=== PATIENT | male | born 1950 | race Caucasian/White ===

== ENCOUNTER 2016-09-20 08:39 | Observation (INO) | payer MEDICARE, OTHER ==
[~2016-09-20] VITALS: Ht 172.7 cm; Wt 89.0 kg
[2016-09-20] VITALS (9 sets, daily range): BP systolic 106–139; BP diastolic 59–77; PULSE 51–70; RESP 16–20; TEMP 97.5–99.2; O2SAT 93–99
[~2016-09-20 08:39] MED LIST: ALAV10TA PO; ASPI81TA82 PO; ATOR10TA PO; B COTAB3 PO; BACL10TA PO; CALC250 PO; CLON.5 PO; DOCU1CAP39 PO; KETO2%T TOP; KETO2SHA5 TOP; LACT CHEW; MECL12.574 PO; NAME10TA PO; OMEG100037 PO; OXYB5TAB33 PO; PARO40TA PO; PERC5TAB12 PO; TAB-TAB PO; VENTAER INH; WELL150T PO; [UNRECOGNIZED DRUG - CODE] PO
[2016-09-20] MEDS ORDERED: TRAZ100T6 PO (08:55)
[2016-09-20] MEDS ORDERED: MEMA1TAB2 PO (08:55)
[2016-09-20] MEDS ORDERED: BACL10TA PO (08:55)
[2016-09-20] MEDS ORDERED: ACIDWAF PO (08:55)
[2016-09-20] MEDS ORDERED: ATOR40TA16 PO (08:55)
[2016-09-20] MEDS ORDERED: MECL1CHW PO (08:55)
[2016-09-20] MEDS ORDERED: CLON0.5T PO (08:55)
[2016-09-20] MEDS ORDERED: GALA12TA PO (08:55)
[2016-09-20] MEDS ORDERED: BUPR100T4 PO (08:55)
[2016-09-20] MEDS ORDERED: ARTISOL3 RIGHT EYE (08:55)
[2016-09-20] MEDS ORDERED: ONDANSETRON HCL 4 MG/2 ML VIAL IV PUSH ONE (09:00)
[2016-09-20] MEDS ORDERED: SODIUM CHLORIDE 0.9% FLUSH 10 ML FLUSH IVF PRN (09:00)
[2016-09-20] MEDS ORDERED: MORPHINE SULFATE 4 MG/ML INJ IV ONE (09:00)
--- NOTE | 2016-09-20 09:16 | PD ---
HPI Chief Complaint: Syncope/Near-Syncope Time Seen by Provider: 08:42 Travel History International Travel<30 days: No Contact w/Intl Traveler<30days: No Traveled to known affect area: No History of Present Illness HPI 65 y/o male presents after he had a syncopal event in the shower last night. He hit his left lower chest and has been having pain there since. He states he' s had multiple blackout episodes before but doesn't know why he gets them. He states that he was able to get into bed afterwards that given he cannot get out of bed and the pain was worse he elected to call an ambulance to bring him here. He does not recall anything about the fall other than waking up next to a broken toilet. He states he sometimes has issues with his memory as he has dementia but provides his medication list. This limits history. He denies other complaints. PFSH Past Medical History Arthritis: Yes Anxiety: Yes Depression: Yes (ptsd) Cancer: Yes (prostate) High Cholesterol: Yes Chemotherapy: Yes COPD: Yes Dementia: Yes GERD: Yes Kidney Stones: Yes Psychiatric: Yes (movement terrets) Shingles: Yes Sleep Apnea: Yes (no cpap) Influenza Vaccination: Yes Past Surgical History Appendectomy: Yes Tonsillectomy: Yes Other Surgery: Yes (r lung sx) Social History Alcohol Use: No Tobacco Use: No Substance Use: Yes (etoh hx) Allergies-Medications (Allergen,Severity, Reaction): Coded Allergies: Reglan (Verified Allergy, Intermediate, severe depression, 09/20/16) Reported Meds & Prescriptions Reported Meds & Active Scripts Active Reported Trazodone (Trazodone HCl) 100 Mg Tablet 100 Mg PO HS Memantine 10 Mg Tab 10 Mg PO BID Meclizine HCl 25 Mg Tab.chew 12.5 Mg PO TID PRN Acidophilus (Lactobacillus) 1 Mg Wafr 2 Tab PO DAILY Galantamine (Galantamine Hydrobromide) 12 Mg Tab 24 Mg PO DAILY Clonazepam 0.5 Mg Tab 0.5 Mg PO BID Bupropion HCl 100 Mg Tab 300 Mg PO DAILY Baclofen 10 Mg Tab 10 Mg PO TID Atorvastatin (Atorvastatin Calcium) 40 Mg Tab 40 Mg PO HS Artificial Tears (Dextran 70/Hypromellose) 1 Each Drope[place] 1 Drop RIGHT EYE QID Review of Systems Except as stated in HPI: all other systems reviewed are Neg Physical Exam Narrative General: 65 y/o patient in no apparent distress Skin: trauma noted to left lower chest wall with ecchymosis Eyes: Pupils equal NECK: no pain with palpation in midline and with range of motion Cardiovascular: Regular rate and rhythm Respiratory: Normal respiratory effort noted, clear to auscultation bilaterally Abdomen: soft, tender left upper quadrant, nondistended Back: No step-offs, midline spine nontender with palpation Extremities: No pain over main joints Neuro: awake, moves all extremities, clear speech Data Data Last Documented VS Vital Signs Date Time Temp Pulse Resp B/P Pulse Ox O2 Delivery O2 Flow Rate FiO2 09/20/16 11:00 52 16 115/68 98 Room Air 09/20/16 08:45 98.4 Orders Electrocardiogram (09/20/16 08:47) Complete Blood Count With Diff (09/20/16 08:47) Comprehensive Metabolic Panel (09/20/16 08:47) Magnesium (Mg) (09/20/16 08:47) Ckmb (Isoenzyme) Profile (09/20/16 08:47) Troponin I (09/20/16 08:47) Act Partial Throm Time (Ptt) (09/20/16 08:47) Prothrombin Time / Inr (Pt) (09/20/16 08:47) Urinalysis - C+S If Indicated (09/20/16 08:47) Chest, Single Ap (09/20/16 08:47) Ecg Monitoring (09/20/16 08:47) Iv Access Insert/Monitor (09/20/16 08:47) Oximetry (09/20/16 08:47) Sodium Chloride 0.9% Flush (Ns Flush) (09/20/16 09:00) Ct Brain W/O Iv Contrast(Rout) (09/20/16 08:47) Ct Abd/Pel W Iv Contrast(Rout) (09/20/16 08:47) Ct Thorax/ Chest W Iv Contrast (09/20/16 08:47) Morphine Inj (Morphine Inj) (09/20/16 09:00) Ondansetron Inj (Zofran Inj) (09/20/16 09:00) CKMB (09/20/16 08:54) CKMB% (09/20/16 08:54) Morphine Inj (Morphine Inj) (09/20/16 10:00) Iohexol 350 Inj (Omnipaque 350 Inj) (09/20/16 10:16) Admit Order (Ed Use Only) (09/20/16 12:23) Labs Laboratory Tests Test 09/20/16 09/20/16 08:54 11:54 White Blood Count 6.3 TH/MM3 Red Blood Count 4.34 MIL/MM3 Hemoglobin 12.7 GM/DL Hematocrit 37.8 % Mean Corpuscular Volume 87.0 FL Mean Corpuscular Hemoglobin 29.2 PG Mean Corpuscular Hemoglobin 33.5 % Concent Red Cell Distribution Width 13.5 % Platelet Count 222 TH/MM3 Mean Platelet Volume 8.9 FL Neutrophils (%) (Auto) 59.6 % Lymphocytes (%) (Auto) 26.1 % Monocytes (%) (Auto) 9.8 % Eosinophils (%) (Auto) 4.0 % Basophils (%) (Auto) 0.5 % Neutrophils # (Auto) 3.7 TH/MM3 Lymphocytes # (Auto) 1.6 TH/MM3 Monocytes # (Auto) 0.6 TH/MM3 Eosinophils # (Auto) 0.3 TH/MM3 Basophils # (Auto) 0.0 TH/MM3 CBC Comment DIFF FINAL Differential Comment Prothrombin Time 10.4 SEC Prothromb Time International 0.9 RATIO Ratio Activated Partial 26.6 SEC Thromboplast Time Sodium Level 141 MEQ/L Potassium Level 4.0 MEQ/L Chloride Level 107 MEQ/L Carbon Dioxide Level 28.7 MEQ/L Anion Gap 5 MEQ/L Blood Urea Nitrogen 18 MG/DL Creatinine 0.99 MG/DL Estimat Glomerular Filtration 76 ML/MIN Rate Random Glucose 102 MG/DL Calcium Level 9.0 MG/DL Magnesium Level 2.2 MG/DL Total Bilirubin 0.4 MG/DL Aspartate Amino Transf 26 U/L (AST/SGOT) Alanine Aminotransferase 50 U/L (ALT/SGPT) Alkaline Phosphatase 59 U/L Total Creatine Kinase 190 U/L Creatine Kinase MB 2.4 NG/ML Troponin I LESS THAN 0.02 NG/ML Total Protein 6.7 GM/DL Albumin 3.7 GM/DL Urine Color YELLOW Urine Turbidity CLEAR Urine pH 5.5 Urine Specific [place] 1.044 Urine Protein NEG mg/dL Urine Glucose (UA) NEG mg/dL Urine Ketones NEG mg/dL Urine Occult Blood NEG Urine Nitrite NEG Urine Bilirubin NEG Urine Urobilinogen LESS THAN 2.0 MG/DL Urine Leukocyte Esterase NEG Urine WBC 1 /hpf Urine Mucus FEW /lpf Microscopic Urinalysis Comment CULT NOT INDICATED MDM Medical Decision Making Medical Screen Exam Complete: Yes Emergency Medical Condition: Yes Medical Record Reviewed: Yes (pmh confirmed) Interpretation(s) EKG shows NSR, no ST elevation or depression, and no arrhythmias. No significant T-wave inversions. first degree av block CBC & BMP Diagram 09/20/16 08:54 Last [address] 09/20/16846 Signed Impressions: Service Date/Time: Tuesday, September 20, 2016 10:06 - CONCLUSION: No acute intracranial abnormality. Mild mucosal thickening within right maxillary sinus. Casper Murray MD Chest X-Ray 09/20/16846 Signed Impressions: Service Date/Time: Tuesday, September 20, 2016 08:57 - CONCLUSION: No acute disease. Nicola Quiñonez MD FACR Chest CT 09/20/16846 Signed Impressions: Service Date/Time: Tuesday, September 20, 2016 10:11 - CONCLUSION: Left lower rib fracture without pneumothorax or contusion. Nicola Quiñonez MD FACR Abdomen/Pelvis CT 09/20/16846 Signed Impressions: Service Date/Time: Tuesday, September 20, 2016 10:06 - CONCLUSION: Left lower rib fracture. There is no splenic laceration or contusion. There is no free fluid. Nicola Quiñonez MD FACR Differential Diagnosis fracture, pneumothorax, spleenic injury, vasovagal, anemia, syncope.... Narrative Course will check labs and trauma imaging and reeval ed workup with 9 and 10th ribs fractures, needing morphine for pain control, will place in observation for monitoring Diagnosis Primary Impression: Rib fracture Qualified Code: S22.42XA - Closed fracture of multiple ribs of left side, initial encounter Additional Impression: Syncope Qualified Code: R55 - Syncope, unspecified syncope type Dianna Betts MD Sep 20, 2016 09:16
[2016-09-20 09:22] LABS: AUTOMATED NEUTROPHIL # 3.7 TH/MM3 (1.8-7.7); BASOPHIL % 0.5 % (0.0-2.0); EOSINOPHIL # 0.3 TH/MM3 (0-0.4); HEMATOCRIT 37.8 % (39.0-51.0); HEMO FLAGS DIFF FINAL; LYMPH % 26.1 % (9.0-44.0); LYMPHOCYTE # 1.6 TH/MM3 (1.0-4.8); MEAN CORPUSCULAR HEMOGLOBIN 29.2 PG (27.0-34.0); MEAN CORPUSCULAR HGB CONC 33.5 % (32.0-36.0); MONO % 9.8 % (0.0-8.0); NEUT % 59.6 % (16.0-70.0); PLATELET COUNT 222 TH/MM3 (150-450); RED BLOOD COUNT 4.34 MIL/MM3 (4.50-5.90); RED CELL DISTRIBUTION WIDTH 13.5 % (11.6-17.2); WHITE BLOOD COUNT 6.3 TH/MM3 (4.0-11.0)
[2016-09-20 09:35] LABS: APTT (PATIENT) 26.6 SEC (24.3-30.1); INTERNATIONAL NORMALIZED RATIO 0.9 RATIO; PROTHROMBIN TIME - PATIENT 10.4 SEC (9.8-11.6)
[2016-09-20 09:36] LABS: ANION GAP 5 MEQ/L (5-15); AST (GOT) 26 U/L (15-37); BICARBONATE 28.7 MEQ/L (21.0-32.0); BLOOD UREA NITROGEN 18 MG/DL (7-18); CHLORIDE 107 MEQ/L (98-107); GLOMERULAR FILTRATION RATE 76 ML/MIN (>89); MAGNESIUM 2.2 MG/DL (1.5-2.5); SODIUM (NA) 141 MEQ/L (136-145)
[2016-09-20 09:37] LABS: ALT (GPT) 50 U/L (12-78)
[2016-09-20 09:40] LABS: ALKALINE PHOSPHATASE 59 U/L (45-117); CREATINE KINASE 190 U/L (39-308); TOTAL BILIRUBIN ADULT 0.4 MG/DL (0.2-1.0)
--- NOTE | 2016-09-20 09:49 | RADRPT ---
EXAM DATE/TIME: 09/20/2016 08:57 [facility] COMPARISON: No previous studies available for comparison. INDICATIONS : Syncope, fall, passed out in the shower today, pain left chest and back MEDICAL HISTORY : Renal calculi. SURGICAL HISTORY : Appendectomy. right lung biopsy ENCOUNTER: Initial ACUITY: 1 day PAIN SCORE: 8/10 LOCATION: Left chest FINDINGS: A single view of the chest demonstrates the lungs to be symmetrically aerated without evidence of mas s, infiltrate or effusion. The cardiomediastinal contours are unremarkable. Osseous structures are intact. CONCLUSION: No acute disease. Nicola Quiñonez MD FACR on September 20, 2016 at 9:46 Board Certified Radiologist. This report was verified electronically.
[2016-09-20 09:53] LABS: CKMB 2.4 NG/ML (0.5-3.6)
[2016-09-20] MEDS ORDERED: MORPHINE SULFATE 4 MG/ML INJ IV PUSH ONE (10:00)
[2016-09-20] MEDS ORDERED: IOHEXOL 350 MG/ML 10 ML VIAL (for RAD DIAG) IV ONE (10:16)
--- NOTE | 2016-09-20 10:20 | RADRPT ---
EXAM DATE/TIME: 09/20/2016 10:06 [facility] COMPARISON: No previous studies available for comparison. INDICATIONS : Syncopal episode with fall. Left chest/abdominal pain. RADIATION DOSE: 56.35 CTDIvol (mGy) MEDICAL HISTORY : Carcinoma, prostate. Dementia. Chronic obstructive pulmonary disease. SURGICAL HISTORY : Appendectomy. Right lung surgery ENCOUNTER: Initial ACUITY: 1 day PAIN SCALE: 3/10 LOCATION: Left chest TECHNIQUE: Multiple contiguous axial images were obtained of the head. Using automated exposure control and adj ustment of the mA and/or kV according to patient size, radiation dose was kept as low as reasonably a chievable to obtain optimal diagnostic quality images. DICOM format image data is available electro nically for review and comparison. FINDINGS: CEREBRUM: The ventricles are normal for age. No evidence of midline shift, mass lesion, hemorrhage or acute in farction. No extra-axial fluid collections are seen. POSTERIOR FOSSA: The cerebellum and brainstem are intact. The 4th ventricle is midline. The cerebellopontine angle i s unremarkable. EXTRACRANIAL: The visualized portion of the orbits is intact. Mild mucosal thickening is noted within the right max illary sinus. SKULL: The calvaria is intact. No evidence of skull fracture. CONCLUSION: No acute intracranial abnormality. Mild mucosal thickening within right maxillary sin us. Casper Murray MD on September 20, 2016 at 10:15 Board Certified Radiologist. This report was verified electronically.
--- NOTE | 2016-09-20 10:40 | RADRPT ---
EXAM DATE/TIME: 09/20/2016 10:11 [facility] COMPARISON: No previous studies available for comparison. INDICATIONS : Syncopal episode with fall on left side. Left chest/abdominal pain. IV CONTRAST: 71 cc Omnipaque 350 (iohexol) IV ; Cumulative dose for multiple exams. RADIATION DOSE: 6.36 CTDIvol (mGy) ; Combined studies - Thorax/Abdomen/Pelvis MEDICAL HISTORY : Carcinoma, prostate. Chronic obstructive pulmonary disease. Dementia. SURGICAL HISTORY : Appendectomy. Right lung surgery ENCOUNTER: Initial ACUITY: 1 day PAIN SCALE: 4/10 LOCATION: Left chest TECHNIQUE: Volumetric scanning of the chest was performed. Using automated exposure control and adjustment of the mA and/or kV according to patient size, radiation dose was kept as low as reasonab ly achievable to obtain optimal diagnostic quality images. DICOM format image data is available gloria ctronically for review and comparison. FINDINGS: The there is no pneumothorax. The lungs are clear. There is no axillary or mediastinal adenopathy. There is no significant soft tissue swelling over the left chest. Review of bone windows reveals fracture of the ninth and possibly 10th rib. The spleen is intact. CONCLUSION: Left lower rib fracture without pneumothorax or contusion. Nicola Quiñonez MD FACR on September 20, 2016 at 10:35 Board Certified Radiologist. This report was verified electronically.
--- NOTE | 2016-09-20 11:12 | RADRPT ---
EXAM DATE/TIME: 09/20/2016 10:06 [facility] COMPARISON: No previous studies available for comparison. INDICATIONS : Syncopal episode with fall on left side. Left chest/abdominal pain. IV CONTRAST: 71 cc Omnipaque 350 (iohexol) IV ; Cumulative dose for multiple exams. ORAL CONTRAST: No oral contrast ingested. RADIATION DOSE: 6.36 CTDIvol (mGy) ; Combined studies - Thorax/Abdomen/Pelvis MEDICAL HISTORY : Chronic obstructive pulmonary disease. Carcinoma, prostate. Dementia. SURGICAL HISTORY : Appendectomy. Right lung surgery ENCOUNTER: Initial ACUITY: 1 day PAIN SCALE: 4/10 LOCATION: Left chest TECHNIQUE: Volumetric scanning of the abdomen and pelvis was performed. Using automated exposure control and ad justment of the mA and/or kV according to patient size, radiation dose was kept as low as reasonably achievable to obtain optimal diagnostic quality images. DICOM format image data is available electro nically for review and comparison. FINDINGS: The lung base are clear. Left lower rib fracture, is again noted. There is mild fatty replacement t o the liver. The spleen is unremarkable There is no free peritoneal fluid The pancreas, adrenals and kidneys are unremarkable. The pelvic contents appear normal except for scattered diverticuli. Review of bone windows reveals the left lower rib fracture Degenerative changes are present in the lumbar spine. CONCLUSION: Left lower rib fracture. There is no splenic laceration or contusion. There is no free fluid. Nicola Quiñonez MD FACR on September 20, 2016 at 11:08 Board Certified Radiologist. This report was verified electronically.
[2016-09-20 12:22] LABS: BLOOD, URINE NEG (NEG); COMMENT (UR) CULT NOT INDICATED; CULTURE IF INDICATED CULT NOT INDICATED; GLUCOSE,URINE NEG (NEG); KETONE, URINE NEG (NEG); MUCUS URINE FEW /lpf (OCC); NITRITE,URINE NEG (NEG); PH, URINE 5.5 (5.0-8.5); URINE COLOR YELLOW (YELLW/STRAW)
[2016-09-20] MEDS ORDERED: SODIUM CHLORIDE 0.9% FLUSH 10 ML FLUSH IV FLUSH PRN (12:30)
[2016-09-20] MEDS ORDERED: LACTULOSE SYRUP 20 GM/30 ML CUP PO PRN (12:30)
[2016-09-20] MEDS ORDERED: SENNOSIDES 8.6 MG TAB PO PRN (12:30)
[2016-09-20] MEDS ORDERED: BISACODYL 10 MG SUPP RECTAL PRN (12:30)
[2016-09-20] MEDS ORDERED: NALOXONE HCL 0.4 MG/ML AMP IV PRN (12:30)
[2016-09-20] MEDS ORDERED: MAGNESIUM HYDROXIDE SUSP 30 ML CUP PO PRN (12:30)
[2016-09-20] MEDS ORDERED: ONDANSETRON HCL 4 MG/2 ML VIAL IVP PRN (12:30)
[2016-09-20] MEDS: SODIUM CHLOR 0.9% 1000 ML INJ 1,000 ML IV SCH ×2 (13:05→22:19)
--- NOTE | 2016-09-20 13:44 | RADRPT ---
EXAM DATE/TIME: 09/20/2016 12:49 [facility] COMPARISON: No previous studies available for comparison. INDICATIONS : Syncope. MEDICAL HISTORY : Carcinoma, prostate. Arthritis. Renal calculi. Dementia. Cataracts. COPD. Sleep apnea. GERD. PTSD. ETOH abuse. Anxiety. Shingles. SURGICAL HISTORY : Tonsillectomy. Appendectomy. Right leg pins and rods. Right lung surgery. Ch emotherapy. ENCOUNTER: Initial ACUITY: 2 days PAIN SCORE: 0/10 LOCATION: Bilateral neck PEAK SYSTOLIC VELOCITIES (cm/sec): ICA/CCA RATIO: Right: 1.0 Left: 1.0 ICA: Right: 85.3 Left: 89 CCA: Right: 87.9 Left: 90 ECA: Right: 83 Left: 74 VERTEBRAL: Right: 33 antegrade Left: 45 antegrade Elevated flow velocities and ICA/CCA ratios have been found to correlate with increased degrees of vessel stenosis, calculated as percentage of diameter relative to a normal segment of distal ICA/CCA FINDINGS: RIGHT CAROTID: There is no evidence for a hemodynamically significant carotid stenosis. Minimal int imal hyperplasia is present with scattered calcific plaque. LEFT CAROTID: There is no evidence for a hemodynamically significant carotid stenosis. Minimal inti mal hyperplasia is present with scattered calcific plaque. VERTEBRAL ARTERIES: Flow is antegrade in both vertebral arteries. MISCELLANEOUS: There are no ancillary masses or adenopathy. CONCLUSION: Negative examination for a hemodynamically significant carotid stenosis. Nicola Quiñonez MD FACR Board Certified Radiologist. This report was verified electronically.
--- NOTE | 2016-09-20 14:33 | EKG ---
Date Performed: 09/20/2016 Time Performed: 08:57:07 PTAGE: 65 years EKG: SINUS BRADYCARDIA WITH FIRST DEGREE AV BLOCK ABNORMAL ECG NO SIGNIFICANT CHANGE FROM PRIOR ELECTROCARDIOGRAM. PREVIOUS TRACING : 08/31/2014 14.12 DOCTOR: Bony Hook Interpretating Date/Time 09/20/2016 14:32:12
[2016-09-20] MEDS: ACETAMINOPHEN/HYDROcodone 325 MG/5 MG TAB PO PRN ×3 (14:34→22:55)
--- NOTE | 2016-09-20 14:55 | HHI.HP ---
[facility] Service [facility] Primary Care Physician [facility] Admission Diagnosis rib fracture, syncope Diagnoses: Travel History International Travel<30 Days: No Contact w/Intl Traveler <30 Da: No Traveled to Known Affected Are: No History of Present Illness Mr. Leonard is a 65-year-old male. He is here secondary to syncopal episode with rib fractures. He was showering when the syncopal episode occurred. He fell backwards and struck the toilet with his back and has a fracture of ribs 9 and 10 on the left side without displacement. At baseline he does have orthostatic hypotension and uses meclizine as treatment for dizziness. Orthostatic hypotension will be his primary risk factor regarding his syncopal episode today. Baseline medical conditions are COPD, Tourette's, depression, anxiety, PTSD, dementia, hyperlipidemia. He has a history of kidney stones and prostate cancer in the past. He also has problems with recurrent ileus related to radiation he received for his prostate cancer. Presently pain controls the problem and he has not ambulated yet. No recent syncopal workup. His last syncopal episode with injury (leg fracture) was in 2004. She occasionally has syncopal episodes at home and when he is doing yard work. Review of Systems Constitutional: DENIES: Fatigue, Fever, Chills Eyes: DENIES: Blurred vision, Diplopia Ears, nose, mouth, throat: DENIES: Hearing loss, Vertigo Respiratory: DENIES: Apneas, Cough, Wheezing, Shortness of breath Cardiovascular: COMPLAINS OF: Syncope, DENIES: Chest pain, Palpitations Gastrointestinal: DENIES: Abdominal pain, Black stools, Bloody stools Genitourinary: DENIES: Urinary frequency, Hematuria, Nocturia Musculoskeletal: DENIES: Joint pain, Muscle aches, Stiffness Integumentary: DENIES: Abnormal pigmentation Hematologic/lymphatic: DENIES: Bruising Immunologic/allergic: DENIES: Eczema Neurologic: DENIES: Abnormal gait Psychiatric: DENIES: Mood changes, Suicidal Ideation Past Family Social History Past Medical History COPD Tourette's Depression Anxiety PTSD History of prostate cancer Recurrent ileus Hyperlipidemia Dementia (atypical) Recurrent nephrolithiasis Past Surgical History Tonsillectomy Lung biopsy Appendectomy Right leg fracture repair Right knee arthroscopy Reported Medications Reported Meds & Active Scripts Active Reported Trazodone (Trazodone HCl) 100 Mg Tablet 100 Mg PO HS Memantine 10 Mg Tab 10 Mg PO BID Meclizine HCl 25 Mg Tab.chew 12.5 Mg PO TID PRN Acidophilus (Lactobacillus) 1 Mg Wafr 2 Tab PO DAILY Galantamine (Galantamine Hydrobromide) 12 Mg Tab 24 Mg PO DAILY Clonazepam 0.5 Mg Tab 0.5 Mg PO BID Bupropion HCl 100 Mg Tab 300 Mg PO DAILY Baclofen 10 Mg Tab 10 Mg PO TID Atorvastatin (Atorvastatin Calcium) 40 Mg Tab 40 Mg PO HS Artificial Tears (Dextran 70/Hypromellose) 1 Each Droperette 1 Drop RIGHT EYE QID Allergies: Coded Allergies: Reglan (Verified Allergy, Intermediate, severe depression, 09/20/16) Active Ordered Medications Administered Medications Medications (Trade) Dose Ordered Sig/Shikha Route PRN Reason Start Time Stop Time Status Last Admin Dose Admin Sodium Chloride (NS 1000 ml Inj) 1,000 ml @ 100 mls/hr Q10H IV 09/20/16 12:23 09/20/16 13:05 Acetaminophen/ Hydrocodone Bitart ([place] 5-325 Mg) 1 tab Q4H PRN PO PAIN 1-10 09/20/16 12:30 09/20/16 14:34 Family History Diabetes mellitus type 2, hypertension, hyperlipidemia, and thyroid disease in mother Alzheimer's in father Social History No smoking history No drug abuse History of heavy drinking in the past, quit in 1989 Physical Exam Vital Signs Vital Signs Date Time Temp Pulse Resp B/P Pulse Ox O2 Delivery O2 Flow Rate FiO2 09/20/16 11:00 52 16 115/68 98 Room Air 09/20/16 08:50 16 99 Room Air 09/20/16 08:45 98.4 62 16 139/77 99 Physical Exam GENERAL: NAD, A&Ox2 HEAD: Normocephalic. NECK: Supple, trachea midline. No lymphadenopathy. EYES: No scleral icterus. No injection or drainage. CARDIOVASCULAR: Regular rate and rhythm without murmurs, gallops, or rubs. RESPIRATORY: Breath sounds equal bilaterally. No accessory muscle use. GASTROINTESTINAL: Abdomen soft, non-tender, nondistended. MUSCULOSKELETAL: No cyanosis, or edema. SKIN: Warm and dry. NEURO: No focal neurological deficitis. Laboratory Laboratory Tests Test 09/20/16 09/20/16 08:54 11:54 White Blood Count 6.3 Red Blood Count 4.34 Hemoglobin 12.7 Hematocrit 37.8 Mean Corpuscular Volume 87.0 Mean Corpuscular Hemoglobin 29.2 Mean Corpuscular Hemoglobin 33.5 Concent Red Cell Distribution Width 13.5 Platelet Count 222 Mean Platelet Volume 8.9 Neutrophils (%) (Auto) 59.6 Lymphocytes (%) (Auto) 26.1 Monocytes (%) (Auto) 9.8 Eosinophils (%) (Auto) 4.0 Basophils (%) (Auto) 0.5 Neutrophils # (Auto) 3.7 Lymphocytes # (Auto) 1.6 Monocytes # (Auto) 0.6 Eosinophils # (Auto) 0.3 Basophils # (Auto) 0.0 CBC Comment DIFF FINAL Differential Comment Prothrombin Time 10.4 Prothromb Time International 0.9 Ratio Activated Partial 26.6 Thromboplast Time Sodium Level 141 Potassium Level 4.0 Chloride Level 107 Carbon Dioxide Level 28.7 Anion Gap 5 Blood Urea Nitrogen 18 Creatinine 0.99 Estimat Glomerular Filtration 76 Rate Random Glucose 102 Calcium Level 9.0 Magnesium Level 2.2 Total Bilirubin 0.4 Aspartate Amino Transf 26 (AST/SGOT) Alanine Aminotransferase 50 (ALT/SGPT) Alkaline Phosphatase 59 Total Creatine Kinase 190 Creatine Kinase MB 2.4 Troponin I LESS THAN 0.02 Total Protein 6.7 Albumin 3.7 Urine Color YELLOW Urine Turbidity CLEAR Urine pH 5.5 Urine Specific [place] 1.044 Urine Protein NEG Urine Glucose (UA) NEG Urine Ketones NEG Urine Occult Blood NEG Urine Nitrite NEG Urine Bilirubin NEG Urine Urobilinogen LESS THAN 2.0 Urine Leukocyte Esterase NEG Urine WBC 1 Urine Mucus FEW Microscopic Urinalysis Comment CULT NOT INDICATED Result Diagram: 09/20/16 0854 09/20/16 0854 Assessment and Plan Problem List: (1) Syncope ICD Code: R55 Status: Acute (2) Rib fracture ICD Code: S22.39XA Status: Acute Assessment and Plan Assessment and plan 65-year-old male admitted after having a syncopal episode at home and sustaining to rib fractures. Syncope Carotid ultrasound Echocardiogram Follow on telemetry Orthostatic blood pressure checks Continue meclizine as needed Physical therapy evaluation Rib fractures (ribs 9 and 10 on left) [place] for pain Physical therapy evaluation to determine ambulation stability COPD No exacerbation No change in baseline treatments Follow clinically Tourette's syndrome Motor variety Supportive care Depression Anxiety PTSD Continue baseline treatments Follow clinically No exacerbation History of prostate cancer Follows in outpatient Recurrent ileus No symptoms tonight Follow clinically Hyperlipidemia Follow as an outpatient Dementia (atypical) No change in baseline treatments Monitor as an outpatient nephrolithiasis history Asymptomatic DVT prophylaxis SCDs Problem Qualifiers (1) Syncope: Qualified Code: R55 - Syncope, unspecified syncope type (2) Rib fracture: Qualified Code: S22.42XA - Closed fracture of multiple ribs of left side, initial encounter Kadeem Marroquin MD Sep 20, 2016 14:54
[2016-09-20] MEDS ORDERED: MECLIZINE HCL 25 MG TAB PO PRN (17:15)
[2016-09-20] MEDS: ARTIFICIAL TEARS OPTH SOLN 15 ML BTL RIGHT EYE SCH ×2 (18:35→22:18)
[2016-09-20] MEDS: BACLOFEN 10 MG TAB PO SCH (18:35)
[2016-09-20] MEDS ORDERED: traZODone HCL 100 MG TAB PO SCH (21:00)
[2016-09-20] MEDS ORDERED: ATORVASTATIN 40 MG TAB PO SCH (21:00)
[2016-09-20] MEDS: SODIUM CHLORIDE 0.9% FLUSH 10 ML FLUSH IV FLUSH SCH (22:20)
[2016-09-20] MEDS: clonazePAM 0.5 MG TAB PO SCH (22:22)
[2016-09-20] MEDS: MEMANTINE HCL 10 MG TAB PO SCH (22:23)
[2016-09-20] MEDS: DOCUSATE SODIUM 50 MG/SENNA 8.6 MG TAB PO SCH (22:23)
[2016-09-20] MEDS ORDERED: CLAR10CA3 PO (23:49)
[2016-09-21] VITALS (9 sets, daily range): BP systolic 105–122; BP diastolic 57–71; PULSE 47–60; RESP 16–18; TEMP 97.9–98.5; O2SAT 95–96
[2016-09-21 05:41] LABS: BICARBONATE 28.1 MEQ/L (21.0-32.0)
[2016-09-21 06:02] LABS: AUTOMATED NEUTROPHIL # 2.3 TH/MM3 (1.8-7.7); BASOPHIL % 0.7 % (0.0-2.0); EOSINOPHIL # 0.2 TH/MM3 (0-0.4); EOSINOPHIL % 4.6 % (0.0-4.0); HEMO FLAGS DIFF FINAL; LYMPH % 37.6 % (9.0-44.0); LYMPHOCYTE # 1.9 TH/MM3 (1.0-4.8); MEAN CELL VOLUME 88.8 FL (80.0-100.0); MEAN CORPUSCULAR HEMOGLOBIN 28.6 PG (27.0-34.0); MEAN CORPUSCULAR HGB CONC 32.2 % (32.0-36.0); MONO % 9.5 % (0.0-8.0); NEUT % 47.6 % (16.0-70.0); PLATELET COUNT 197 TH/MM3 (150-450); RED BLOOD COUNT 4.17 MIL/MM3 (4.50-5.90); RED CELL DISTRIBUTION WIDTH 13.8 % (11.6-17.2); WHITE BLOOD COUNT 4.9 TH/MM3 (4.0-11.0)
[2016-09-21] MEDS: SODIUM CHLOR 0.9% 1000 ML INJ 1,000 ML IV SCH (08:23)
[2016-09-21] MEDS ORDERED: NAPROXEN 250 MG TAB PO SCH (09:00)
[2016-09-21] MEDS ORDERED: LACTOBACILLUS PO SCH (09:00)
[2016-09-21] MEDS ORDERED: buPROPion HCL 100 MG TAB PO SCH (09:00)
[2016-09-21] MEDS ORDERED: GALANTAMINE HYDROBROMIDE 4 MG TAB PO SCH (09:00)
--- NOTE | 2016-09-21 09:35 | HHI.PR ---
Subjective Remarks Follow-up for syncope and rib fractures. The patient continues to complain of left flank pain where his broken ribs are. Otherwise he denies any chest pain or shortness of breath. He states the pain medicine helps, but does not relieve the pain and still has problems moving. He states he used use a walker and wheelchair, but has weaned himself off of that. Objective Vitals Vital Signs Date Time Temp Pulse Resp B/P Pulse Ox O2 Delivery O2 Flow Rate FiO2 09/21/16 08:17 97.9 50 18 117/63 96 09/21/16 04:46 50 09/21/16 04:39 98.5 50 18 110/65 95 09/21/16 00:31 47 09/20/16 22:42 99.2 70 20 106/59 93 09/20/16 19:56 54 09/20/16 19:40 97.5 56 20 109/59 94 09/20/16 16:52 97.9 60 17 114/75 95 09/20/16 16:50 51 09/20/16 14:46 97.8 65 16 110/61 96 09/20/16 11:00 52 16 115/68 98 Room Air I/O 09/20/16 09/20/16 09/20/16 09/21/16 09/21/16 09/21/16 07:00 15:00 23:00 07:00 15:00 23:00 Output Total 400 ml Balance -400 ml Output Urine Total 400 ml Result Diagram: 09/21/16 0347 09/21/16 0347 Imaging Last Impressions Head CT 09/20/16846 Signed Impressions: Service Date/Time: Tuesday, September 20, 2016 10:06 - CONCLUSION: No acute intracranial abnormality. Mild mucosal thickening within right maxillary sinus. Casper Murray MD Chest X-Ray 09/20/16846 Signed Impressions: Service Date/Time: Tuesday, September 20, 2016 08:57 - CONCLUSION: No acute disease. Nicola Quiñonez MD FACR Chest CT 09/20/16846 Signed Impressions: Service Date/Time: Tuesday, September 20, 2016 10:11 - CONCLUSION: Left lower rib fracture without pneumothorax or contusion. Nicola Quiñonez MD FACR Abdomen/Pelvis CT 09/20/16846 Signed Impressions: Service Date/Time: Tuesday, September 20, 2016 10:06 - CONCLUSION: Left lower rib fracture. There is no splenic laceration or contusion. There is no free fluid. Nicola Quiñonez MD FACR Carotid Artery Ultrasound 09/20/16 0000 Signed Impressions: Service Date/Time: Tuesday, September 20, 2016 12:49 - CONCLUSION: Negative examination for a hemodynamically significant carotid stenosis. Nicola Quiñonez MD Objective Remarks GENERAL: Well-developed well-nourished. In no acute distress. SKIN: Warm and dry. No lesions noted. HEENT: Normocephalic. Pupils equal and round. Mucous membranes pink and moist. CARDIOVASCULAR: Regular rate and rhythm. No murmur appreciated. RESPIRATORY: No accessory muscle use. Clear to auscultation. Breath sounds equal bilaterally. GASTROINTESTINAL: Abdomen soft, non-tender, nondistended. Bowel sounds x4. MUSCULOSKELETAL: No obvious deformities. No clubbing or cyanosis. No edema. TTP of the lateral left lower ribs. NEUROLOGICAL: Awake and alert. No focal neurological deficits. Moves upper and lower extremities spontaneously. Normal speech. Strength 5/5. PSYCHIATRIC: Appropriate mood and affect; insight and judgment normal. A/P Problem List: (1) Syncope ICD Code: R55 Status: Acute (2) Rib fracture ICD Code: S22.39XA Status: Acute Assessment and Plan 65-year-old male admitted after having a syncopal episode at home and sustaining to rib fractures. Syncope Reviewed: Carotid ultrasound with no significant stenosis. Telemetry shows heart rate around 60 and sinus while awake, heart rate did drop down to 38 while asleep. Echocardiogram Follow on telemetry Orthostatic blood pressure checks Continue meclizine as needed Physical therapy evaluation Rib fractures (ribs 9 and 10 on left), seen on review of CT imaging Scheduled naproxen and Percocet as needed for pain Physical therapy evaluation to determine ambulation stability Incentive spirometry COPD No exacerbation No change in baseline treatments Follow clinically Tourette's syndrome Motor variety Supportive care Depression Anxiety PTSD Continue baseline treatments Follow clinically No exacerbation History of prostate cancer Follows in outpatient Recurrent ileus No current symptoms and no signs of ileus on abdominal imaging Follow clinically Hyperlipidemia Follow as an outpatient Dementia (atypical) No change in baseline treatments Monitor as an outpatient nephrolithiasis history Asymptomatic DVT prophylaxis SCDs Discharge Planning Follow-up PT recommendations, orthostatic blood pressures, and echocardiogram results. 1545 echocardiogram unremarkable. PT recommends no restrictions. Non- orthostatic. D/W Dr. Marroquin, patient, and at bedside. [place] home today. Problem Qualifiers (1) Syncope: Qualified Code: R55 - Syncope, unspecified syncope type (2) Rib fracture: Qualified Code: S22.42XA - Closed fracture of multiple ribs of left side, initial encounter Terence Diana Sep 21, 2016 09:35
[2016-09-21] MEDS: ARTIFICIAL TEARS OPTH SOLN 15 ML BTL RIGHT EYE SCH ×2 (09:42→12:09)
[2016-09-21] MEDS: SODIUM CHLORIDE 0.9% FLUSH 10 ML FLUSH IV FLUSH SCH (09:42)
[2016-09-21] MEDS: BACLOFEN 10 MG TAB PO SCH ×2 (09:43→12:10)
[2016-09-21] MEDS: oxyCODONE/ACETAMINOPHEN 5 MG/325 MG TAB PO PRN ×2 (09:43→14:22)
[2016-09-21] MEDS: DOCUSATE SODIUM 50 MG/SENNA 8.6 MG TAB PO SCH (09:43)
[2016-09-21] MEDS: clonazePAM 0.5 MG TAB PO SCH (09:43)
[2016-09-21] MEDS: MEMANTINE HCL 10 MG TAB PO SCH (09:44)
--- NOTE | 2016-09-21 15:38 | ECHRPT ---
Indication: chf CONCLUSIONS Normal left ventricular size. The left ventricular systolic function is normal with an estimated ejection fraction in the range of 55-60%. No regional wall motion abnormalities are present. Trace mitral valve regurgitation. The aortic valve is not well visualized. No aortic valve regurgitation. There is mild tricuspid valve regurgitation. The estimated pulmonary arterial pressure is 34__ mmHg. The pulmonary valve is not well visualized. The inferior vena cava was not well visualized. BP: 110 / 61 HR: Rhythm: Technical Quality:Fair FINDINGS LEFT VENTRICLE Normal left ventricular size. The left ventricular systolic function is normal with an estimated ejection fraction in the range of 55-60%. No regional wall motion abnormalities are present. RIGHT VENTRICLE Normal right ventricular size and systolic function. LEFT ATRIUM The left atrial size is normal. RIGHT ATRIUM The right atrial size is normal. ATRIAL SEPTUM Normal atrial septal thickness without atrial level shunting by limited color doppler interrogation. AORTA The aortic root and proximal ascending aorta are normal in size on limited imaging. MITRAL VALVE Structurally normal mitral valve. Trace mitral valve regurgitation. AORTIC VALVE Trileaflet aortic valve. The aortic valve is not well visualized. No aortic valve regurgitation. TRICUSPID VALVE Structurally normal tricuspid valve. There is mild tricuspid valve regurgitation. The estimated pulmonary arterial pressure is 34__ mmHg. PULMONARY VALVE No pulmonary valve regurgitation or stenosis. The pulmonary valve is not well visualized. VESSELS The inferior vena cava was not well visualized. PERICARDIUM No pericardial effusion. Bony Hook MD (Electronically Signed) Final Date:21 September 2016 15:37
[2016-09-21] MEDS ORDERED: OXYC1TAB63 PO (15:46)
[2016-09-21] MEDS ORDERED: LORATADINE 10 MG TAB PO SCH (21:00)
== END 2016-09-21 18:28 | disposition home or self-care (01) ==
LOC: NEPE 08:39 → NEDA 12:24 → NEPGCP 14:19
PROVIDERS: ADMIT Hospitalist; ATTEND Hospitalist
DX: S22.42XA Multiple fractures of ribs, left side, initial encounter for closed fracture (principal); R55 Syncope and collapse; J44.9 Chronic obstructive pulmonary disease, unspecified; F32.9 Major depressive disorder, single episode, unspecified; E78.00 Pure hypercholesterolemia, unspecified; F03.90 Unspecified dementia, unspecified severity, without behavioral disturbance, psychotic disturbance, mood disturbance, and anxiety; K21.9 Gastro-esophageal reflux disease without esophagitis; G47.30 Sleep apnea, unspecified; K56.7 Ileus, unspecified; F95.2 Tourette's disorder; F41.9 Anxiety disorder, unspecified; M19.90 Unspecified osteoarthritis, unspecified site; Z85.46 Personal history of malignant neoplasm of prostate; Z79.899 Other long term (current) drug therapy; W18.2XXA Fall in (into) shower or empty bathtub, initial encounter
CPT/HCPCS: 70450; 71010; 71260; 74177; 80048; 80053; 81001; 82550; 82552; 83735; 84484; 85025; 85610; 85730; 93005; 93308; 93880; 94150; 96374; 96375; 96376; 97162; 99285; G0378; G8987; G8988; J2270; J2405; J7030; Q9967

== ENCOUNTER 2016-12-10 10:48 | Inpatient (IN) | payer MEDICARE, OTHER ==
[~2016-12-10] VITALS: Ht 175.3 cm; Wt 90.0 kg
[2016-12-10] VITALS (8 sets, daily range): BP systolic 101–128; BP diastolic 56–79; PULSE 53–75; RESP 12–20; TEMP 97.8–98.7; O2SAT 93–99
[~2016-12-10 10:48] MED LIST changes: +ACIDWAF PO; -ALAV10TA PO; +ARTISOL3 RIGHT EYE; -ASPI81TA82 PO; -ATOR10TA PO; +ATOR40TA16 PO; -B COTAB3 PO; +BUPR100T4 PO; -CALC250 PO; +CLAR10CA3 PO; -CLON.5 PO; +CLON0.5T PO; -DOCU1CAP39 PO; +GALA12TA PO; -KETO2%T TOP; -KETO2SHA5 TOP; -LACT CHEW; -MECL12.574 PO; +MECL1CHW PO; +MEMA1TAB2 PO; -NAME10TA PO; -OMEG100037 PO; -OXYB5TAB33 PO; +OXYC1TAB63 PO; -PARO40TA PO; -PERC5TAB12 PO; -TAB-TAB PO; +TRAZ100T6 PO; -VENTAER INH; -WELL150T PO; -[UNRECOGNIZED DRUG - CODE] PO
[2016-12-10] MEDS ORDERED: IOHEXOL 350 MG/ML 10 ML VIAL (for RAD DIAG) IVCONTRAST ONE (10:49)
[2016-12-10] MEDS ORDERED: SODIUM CHLOR 0.9% 1000 ML INJ 1,000 ML IV SCH (11:13)
[2016-12-10] MEDS ORDERED: ONDANSETRON HCL 4 MG/2 ML VIAL IVP ONE (11:15)
[2016-12-10] MEDS ORDERED: MORPHINE SULFATE 4 MG/ML INJ IM ONE (11:15)
[2016-12-10 11:41] LABS: AUTOMATED NEUTROPHIL # 6.8 TH/MM3 (1.8-7.7); BASOPHIL % 0.3 % (0.0-2.0); EOSINOPHIL % 0.4 % (0.0-4.0); HEMATOCRIT 41.8 % (39.0-51.0); HEMO FLAGS DIFF FINAL; LYMPH % 10.8 % (9.0-44.0); LYMPHOCYTE # 0.9 TH/MM3 (1.0-4.8); MEAN CELL VOLUME 88.2 FL (80.0-100.0); MEAN CORPUSCULAR HEMOGLOBIN 29.3 PG (27.0-34.0); MEAN CORPUSCULAR HGB CONC 33.2 % (32.0-36.0); MONO % 4.6 % (0.0-8.0); NEUT % 83.9 % (16.0-70.0); PLATELET COUNT 305 TH/MM3 (150-450); RED BLOOD COUNT 4.75 MIL/MM3 (4.50-5.90); RED CELL DISTRIBUTION WIDTH 13.8 % (11.6-17.2); WHITE BLOOD COUNT 8.1 TH/MM3 (4.0-11.0)
--- NOTE | 2016-12-10 11:46 | PD ---
HPI Chief Complaint: GI Complaint Time Seen by Provider: 11:13 Travel History International Travel<30 days: No Contact w/Intl Traveler<30days: No Traveled to known affect area: No History of Present Illness HPI 66-year-old male arrives in the emergency department from home for evaluation of abdominal pain and vomiting that first started last night. Patient has a history of prostate cancer with radiation therapy in 2002. The radiation therapy left part of his colon damaged and he intermittently gets paralytic ileus as a result. The patient's is at bedside expresses concern because he has been hospitalized many times in the past for his paralytic ileus. Patient's primary care and GI physician is through the ID. Patient denies any chest pain, shortness of breath, fevers, chills, malaise, weakness or urinary symptoms. Patient states the last time he had a bowel movement was 2 days ago. Patient is still nauseated at this time but has not vomited since arriving to the hospital. . PFSH Past Medical History Arthritis: Yes Asthma: No Blood Disorders: No Anxiety: Yes Depression: Yes (ptsd) Heart Rhythm Problems: No Cancer: Yes (prostate) Cardiovascular Problems: No High Cholesterol: Yes Chemotherapy: No Congestive Heart Failure: No COPD: Yes Dementia: Yes Diabetes: No Endocrine: No GERD: Yes Genitourinary: No Immune Disorder: No Implanted Vascular Access Dvce: Yes Kidney Stones: Yes Medical other: Yes (PARALYTIC ILEUS) Musculoskeletal: Yes (plantar fasciatis ) Neurologic: No Psychiatric: Yes (movement terrets) Reproductive: No Respiratory: Yes Radiation Therapy: Yes Shingles: Yes Sleep Apnea: Yes (no cpap) Tetanus Vaccination: Unknown Influenza Vaccination: Yes Past Surgical History Appendectomy: Yes Body Medical Devices: cony in the R leg Tonsillectomy: Yes Other Surgery: Yes (r lung sx) Social History Alcohol Use: No Tobacco Use: No Substance Use: Yes (marijauna ) Allergies-Medications (Allergen,Severity, Reaction): Coded Allergies: metoclopramide (Unverified Allergy, Intermediate, severe depression, ) Reported Meds & Prescriptions Reported Meds & Active Scripts Active Reported Claritin (Loratadine) 10 Mg Cap 10 Mg PO HS Trazodone (Trazodone HCl) 100 Mg Tablet 100 Mg PO HS Memantine 10 Mg Tab 10 Mg PO BID Meclizine HCl 25 Mg Tab.chew 12.5 Mg PO TID PRN Acidophilus (Lactobacillus) 1 Mg Wafr 2 Tab PO DAILY Galantamine (Galantamine Hydrobromide) 12 Mg Tab 24 Mg PO DAILY Clonazepam 0.5 Mg Tab 0.5 Mg PO BID Bupropion HCl 100 Mg Tab 300 Mg PO DAILY Baclofen 10 Mg Tab 10 Mg PO TID Atorvastatin (Atorvastatin Calcium) 40 Mg Tab 40 Mg PO HS Artificial Tears (Dextran 70/Hypromellose) 1 Each Droperette 1 Drop RIGHT EYE QID Review of Systems Except as stated in HPI: all other systems reviewed are Neg Physical Exam Narrative GENERAL: Well-nourished well-developed 66-year-old male patient that appears to be in pain and nauseated. SKIN: Focused skin assessment warm/dry. HEAD: Atraumatic. Normocephalic. EYES: Pupils equal and round. No scleral icterus. No injection or drainage. ENT: No nasal bleeding or discharge. Mucous membranes pink and moist. NECK: Trachea midline. No JVD. CARDIOVASCULAR: Regular rate and rhythm. No murmur appreciated. RESPIRATORY: No accessory muscle use. Clear to auscultation. Breath sounds equal bilaterally. GASTROINTESTINAL: Abdomen soft, tender, nondistended. Large soft movable mass noted on the right lateral aspect of the abdomen. Hepatic and splenic margins not palpable. MUSCULOSKELETAL: No obvious deformities. No clubbing. No cyanosis. No edema. NEUROLOGICAL: Awake and alert. No obvious cranial nerve deficits. Motor grossly within normal limits. Normal speech. PSYCHIATRIC: Appropriate mood and affect; insight and judgment normal. Data Data Last Documented VS Vital Signs Date Time Temp Pulse Resp B/P (MAP) Pulse Ox O2 Delivery O2 Flow Rate FiO2 12/10/16 12:19 63 18 128/73 (91) 99 Room Air 12/10/16 10:52 98.7 Orders Orders Morphine Inj (Morphine Inj) (12/10/16 11:15) Complete Blood Count With Diff (12/10/16 11:13) Comprehensive Metabolic Panel (12/10/16 11:13) Lipase (12/10/16 11:13) Prothrombin Time / Inr (Pt) (12/10/16 11:13) Act Partial Throm Time (Ptt) (12/10/16 11:13) Ct Abd/Pel W Iv Contrast(Rout) (12/10/16 11:13) Iv Access Insert/Monitor (12/10/16 11:13) Ecg Monitoring (12/10/16 11:13) Oximetry (12/10/16 11:13) NPO (12/10/16 11:13) Ondansetron Inj (Zofran Inj) (12/10/16 11:15) Sodium Chlor 0.9% 1000 Ml Inj (Ns 1000 M (12/10/16 11:13) Electrocardiogram (12/10/16 11:13) Iohexol 350 Inj (Omnipaque 350 Inj) (12/10/16 10:49) Labs Laboratory Tests Test 12/10/16 11:15 White Blood Count 8.1 TH/MM3 Red Blood Count 4.75 MIL/MM3 Hemoglobin 13.9 GM/DL Hematocrit 41.8 % Mean Corpuscular Volume 88.2 FL Mean Corpuscular Hemoglobin 29.3 PG Mean Corpuscular Hemoglobin Concent 33.2 % Red Cell Distribution Width 13.8 % Platelet Count 305 TH/MM3 Mean Platelet Volume 7.9 FL Neutrophils (%) (Auto) 83.9 % Lymphocytes (%) (Auto) 10.8 % Monocytes (%) (Auto) 4.6 % Eosinophils (%) (Auto) 0.4 % Basophils (%) (Auto) 0.3 % Neutrophils # (Auto) 6.8 TH/MM3 Lymphocytes # (Auto) 0.9 TH/MM3 Monocytes # (Auto) 0.4 TH/MM3 Eosinophils # (Auto) 0.0 TH/MM3 Basophils # (Auto) 0.0 TH/MM3 CBC Comment DIFF FINAL Differential Comment Prothrombin Time 10.5 SEC Prothromb Time International Ratio 1.0 RATIO Activated Partial Thromboplast Time 26.1 SEC Blood Urea Nitrogen 14 MG/DL Creatinine 1.01 MG/DL Random Glucose 137 MG/DL Total Protein 7.6 GM/DL Albumin 4.2 GM/DL Calcium Level 9.7 MG/DL Alkaline Phosphatase 87 U/L Aspartate Amino Transf (AST/SGOT) 35 U/L Alanine Aminotransferase (ALT/SGPT) 64 U/L Total Bilirubin 0.5 MG/DL Sodium Level 137 MEQ/L Potassium Level 4.4 MEQ/L Chloride Level 104 MEQ/L Carbon Dioxide Level 26.4 MEQ/L Anion Gap 7 MEQ/L Estimat Glomerular Filtration Rate 74 ML/MIN Lipase 192 U/L [facility] Medical Decision Making Medical Screen Exam Complete: Yes Emergency Medical Condition: Yes Medical Record Reviewed: Yes Differential Diagnosis Bowel obstruction versus paralytic ileus versus gastroenteritis Narrative Course 66-year-old male patient presents to the emergency department for nausea, vomiting and abdominal pain that first started last night around midnight. Patient is brought here by his . She is very concerned because he has had to be hospitalized multiple times for paralytic ileus in the past. Patient has a history of prostate cancer and received radiation therapy in 2002. The radiation therapy damaged portion of his colon and subsequently he has had multiple bouts of paralytic ileus. Patient denies any chest pain, shortness breath, fever, chills, malaise or weakness. There is a large soft movable mass noted in the right lateral aspect of the patient's abdomen. Patient and state that it has been there for a while and it is a "fatty tumor". Patient is followed through the ID where his PCP and GI physician are located. EKG, CBC, CMP, lipase, PT INR, abdomen CT with contrast ordered and pending. 1 L normal saline IV bolus, 4 mg IV Zofran, 4 mg IV morphine ordered. EKG sinus bradycardia heart rate 59, CBC shows no acute abnormality, CMP shows no acute abnormality, LIPASE within normal limits at 192, PT/INR shows no acute abnormality, ABD CT shows low-grade or partial small bowel obstruction with mildly distended small bowel loops in the proximal and mid small bowel with multiple air-fluid levels. Small amount of free fluid in the pelvis. No free air. Residents paged for admission. Dr. Bell returned the page for admission and accepted the patient. Patient will be admitted for observation. Diagnosis Primary Impression: Bowel obstruction Additional Impression: Nausea & vomiting Admitting Information Admitting Physician Requests: Observation Nelly Fernando Dec 10, 2016 11:46
[2016-12-10 11:51] LABS: APTT (PATIENT) 26.1 SEC (24.3-30.1); PROTHROMBIN TIME - PATIENT 10.5 SEC (9.8-11.6)
[2016-12-10 11:54] LABS: ANION GAP 7 MEQ/L (5-15); AST (GOT) 35 U/L (15-37); BICARBONATE 26.4 MEQ/L (21.0-32.0); BLOOD UREA NITROGEN 14 MG/DL (7-18); CHLORIDE 104 MEQ/L (98-107); GLOMERULAR FILTRATION RATE 74 ML/MIN (>89); POTASSIUM 4.4 MEQ/L (3.5-5.1); SODIUM (NA) 137 MEQ/L (136-145)
[2016-12-10 11:55] LABS: ALT (GPT) 64 U/L (12-78)
[2016-12-10 11:57] LABS: ALKALINE PHOSPHATASE 87 U/L (45-117); TOTAL BILIRUBIN ADULT 0.5 MG/DL (0.2-1.0)
--- NOTE | 2016-12-10 12:35 | RADRPT ---
EXAM DATE/TIME: 12/10/2016 11:45 [facility] COMPARISON: CT ABDOMEN & PELVIS W CONTRAST, September 20, 2016, 10:06. INDICATIONS : Mid to lower abdomen pain. IV CONTRAST: 97 cc Omnipaque 350 (iohexol) IV ORAL CONTRAST: No oral contrast ingested. RADIATION DOSE: 11.49 CTDIvol (mGy) MEDICAL HISTORY : Dementia. Chronic obstructive pulmonary disease. Renal calculi. Prostate cancer SURGICAL HISTORY : Appendectomy. Right lung ENCOUNTER: Initial ACUITY: 1 day PAIN SCALE: 9/10 LOCATION: Abdomen TECHNIQUE: Volumetric scanning of the abdomen and pelvis was performed. Using automated exposure control and ad justment of the mA and/or kV according to patient size, radiation dose was kept as low as reasonably achievable to obtain optimal diagnostic quality images. DICOM format image data is available electro nically for review and comparison. FINDINGS: Lung bases demonstrate some dependent atelectasis. There is fatty infiltration of the liver. Spleen and pancreas are unremarkable. No calcified gallston es. Stable calcifications left adrenal gland. Right adrenal unremarkable. Stable renal parapelvic cys ts and tiny nonobstructing calculi. There is mild dilatation of multiple proximal and mid small bowel loops with air fluid levels. Distal small bowel is decompressed. Findings are characteristic of a low grade or partial small bowel obstr uction. Small amount of free fluid in the pelvis. No free air. CONCLUSION: 1. Low grade or partial small bowel obstruction with mildly distended small bowel loops in the proxim al and mid small bowel with multiple air-fluid levels. Small amount of free fluid in the pelvis. No f ree air. 2. Fatty liver. Subacute lower left rib fractures previously identified in August 2016. Stable left adrenal calcificati ons. Stable renal parapelvic cysts and tiny nonobstructing calculi. Domingo Fall MD on December 10, 2016 at 12:28 Board Certified Radiologist. This report was verified electronically.
--- NOTE | 2016-12-10 13:27 | HHI.HP ---
[facility] Ad[facility] Diagnosis Diagnoses: Chief Complaint: Intractable Nausea, vomit and abdominal pain Travel History International Travel<30 Days: No Contact w/Intl Traveler <30 Da: No Traveled to Known Affected Are: No History of Present Illness This is a pleasant 66 y/o male who was brought in to Emergency room by his , due to Intractable Abdominal pain and nausea and vomit that started last night, he has history of Prostate cancer with radiation therapy 2002, with colon lesion after Radiation therapy got paralytic Ileus, he is been Hospitalized [facility] due to paralytic Ileus , he follows with his Physicians through [place], Denied any chest pain, shortness of breath, fevers, chills, malaise, weakness or urinary symptoms. Patient states the last time he had a bowel movement was 2 days ago. Patient is still nauseated at this time but has not vomited since arriving to the hospital. Seen in ER in the presence of his , he started yesterday night with Nausea, vomit and abdominal pain on epigastric area, non radiated and 8/10 in intensity. at this time improved with pain medicine. Review of Systems Constitutional: DENIES: Fever, Chills, Change in appetite Endocrine: DENIES: Heat/cold intolerance Eyes: DENIES: Blurred vision, Eye pain Gastrointestinal: COMPLAINS OF: Abdominal pain, Constipation, Nausea, Vomiting Except as stated in HPI: all other systems reviewed are Neg Past Family Social History Past Medical History OA Anxiety disorder PTSD Prostate cancer Hyperlipidemia COPD Dementia Dementia Urolithiasis Sleep Apnea no CPAP. Past Surgical History Appendectomy tonsillectomy Lung Surgery. Reported Medications Reported Meds & Active Scripts Active Reported Claritin (Loratadine) 10 Mg Cap 10 Mg PO HS Trazodone (Trazodone HCl) 100 Mg Tablet 100 Mg PO HS Memantine 10 Mg Tab 10 Mg PO BID Meclizine HCl 25 Mg Tab.chew 12.5 Mg PO TID PRN Acidophilus (Lactobacillus) 1 Mg Wafr 2 Tab PO DAILY Galantamine (Galantamine Hydrobromide) 12 Mg Tab 24 Mg PO DAILY Clonazepam 0.5 Mg Tab 0.5 Mg PO BID Bupropion HCl 100 Mg Tab 300 Mg PO DAILY Baclofen 10 Mg Tab 10 Mg PO TID Atorvastatin (Atorvastatin Calcium) 40 Mg Tab 40 Mg PO HS Artificial Tears (Dextran 70/Hypromellose) 1 Each Droperette 1 Drop RIGHT EYE QID Allergies: Coded Allergies: metoclopramide (Unverified Allergy, Intermediate, severe depression, ) Active Ordered Medications Current Medications Medications (Trade) Dose Ordered Sig/Shikha Route Start Time Stop Time Status Last Admin (Lipitor) 40 mg HS PO 12/10/16 21:00 (Lioresal) 10 mg TID PO 12/10/16 18:00 (Wellbutrin) 300 mg DAILY PO 12/11/16 09:00 UNV (KlonoPIN) 0.5 mg BID PO 12/10/16 21:00 Non-Formulary Medication 1 drop QID RIGHT EYE 12/10/16 18:00 UNV (Desyrel) 100 mg HS PO 12/10/16 21:00 Sodium Chloride 1,000 ml @ 100 mls/hr Q10H IV 12/10/16 15:00 12/10/16 15:19 (NS Flush) 2 ml UNSCH PRN IV FLUSH 12/10/16 13:30 (NS Flush) 2 ml BID IV FLUSH 12/10/16 21:00 (Tylenol) 650 mg Q4H PRN PO 12/10/16 13:30 (Zofran Inj) 4 mg Q6H PRN IVP 12/10/16 13:30 (Narcan Inj) 0.4 mg UNSCH PRN IV PUSH 12/10/16 13:30 (Emma-Colace) 1 tab BID PO 12/10/16 21:00 (Milk Of Magnesia Liq) 30 ml Q12H PRN PO 12/10/16 13:30 (Senokot) 17.2 mg Q12H PRN PO 12/10/16 13:30 (Dulcolax Supp) 10 mg DAILY PRN RECTAL 12/10/16 13:30 (Lactulose Liq) 30 ml DAILY PRN PO 12/10/16 13:30 (Morphine Inj) 2 mg Q3H PRN IV PUSH 12/10/16 13:30 12/10/16 15:28 Family History Mother with Dm II, Hypertension and CAD Father with status post Pacemaker Social History Lives with his Mrs. Darlyn Leonard. Marijuana abuse. Physical Exam Vital Signs Vital Signs Date Time Temp Pulse Resp B/P (MAP) Pulse Ox O2 Delivery O2 Flow Rate FiO2 12/10/16 12:19 63 18 128/73 (91) 99 Room Air 12/10/16 11:41 18 95 Room Air 12/10/16 11:06 18 12/10/16 10:52 98.7 75 12 125/77 (93) 97 Physical Exam GENERAL: Well developed and no acute distress. SKIN: Focused skin assessment warm/dry. HEAD: Atraumatic. Normocephalic. EYES: Pupils equal and round. No scleral icterus. No injection or drainage. ENT: No nasal bleeding or discharge. Mucous membranes pink and moist. NECK: Trachea midline. No JVD. CARDIOVASCULAR: Regular rate and rhythm. No murmur appreciated. RESPIRATORY: No accessory muscle use. Clear to auscultation. Breath sounds equal bilaterally. GASTROINTESTINAL: Abdomen soft, tender, nondistended. Large soft movable mass noted on the right lateral aspect of the abdomen. Hepatic and splenic margins not palpable. MUSCULOSKELETAL: No obvious deformities. No clubbing. No cyanosis. No edema. NEUROLOGICAL: Awake and alert. No obvious cranial nerve deficits. Motor grossly within normal limits. Normal speech. PSYCHIATRIC: Appropriate mood and affect; insight and judgment normal. Laboratory Laboratory Tests Test 12/10/16 11:15 White Blood Count 8.1 Red Blood Count 4.75 Hemoglobin 13.9 Hematocrit 41.8 Mean Corpuscular Volume 88.2 Mean Corpuscular Hemoglobin 29.3 Mean Corpuscular Hemoglobin Concent 33.2 Red Cell Distribution Width 13.8 Platelet Count 305 Mean Platelet Volume 7.9 Neutrophils (%) (Auto) 83.9 Lymphocytes (%) (Auto) 10.8 Monocytes (%) (Auto) 4.6 Eosinophils (%) (Auto) 0.4 Basophils (%) (Auto) 0.3 Neutrophils # (Auto) 6.8 Lymphocytes # (Auto) 0.9 Monocytes # (Auto) 0.4 Eosinophils # (Auto) 0.0 Basophils # (Auto) 0.0 CBC Comment DIFF FINAL Differential Comment Prothrombin Time 10.5 Prothromb Time International Ratio 1.0 Activated Partial Thromboplast Time 26.1 Blood Urea Nitrogen 14 Creatinine 1.01 Random Glucose 137 Total Protein 7.6 Albumin 4.2 Calcium Level 9.7 Alkaline Phosphatase 87 Aspartate Amino Transf (AST/SGOT) 35 Alanine Aminotransferase (ALT/SGPT) 64 Total Bilirubin 0.5 Sodium Level 137 Potassium Level 4.4 Chloride Level 104 Carbon Dioxide Level 26.4 Anion Gap 7 Estimat Glomerular Filtration Rate 74 Lipase 192 Result Diagram: 12/10/16 1115 12/10/16 1115 Imaging Last Impressions Abdomen/Pelvis CT 12/10/16 1113 Signed Impressions: Service Date/Time: Saturday, December 10, 2016 11:45 - CONCLUSION: 1. Low grade or partial small bowel obstruction with mildly distended small bowel loops in the proximal and mid small bowel with multiple air-fluid levels. Small amount of free fluid in the pelvis. No free air. 2. Fatty liver. Subacute lower left rib fractures previously identified in August 2016. Stable left adrenal calcifications. Stable renal parapelvic cysts and tiny nonobstructing calculi. Domingo Fall MD Caprini VTE Risk Assessment Caprini VTE Risk Assessment: Mod/High Risk (score >= 2) Caprini Risk Assessment Model Point Value = 1 Point Value = 2 Point Value = 3 Point Value = 5 Age 41-60 Minor surgery BMI > 25 kg/m2 Swollen legs Varicose veins or History of unexplained or recurrent spontaneous Oral contraceptives or hormone replacement Sepsis (< 1 month) Serious lung disease, including pneumonia (< 1 month) Abnormal pulmonary function Acute myocardial infarction Congestive heart failure (< 1 month) History of inflammatory bowel disease Medical patient at bed rest Age 61-74 Arthroscopic surgery Major open surgery (> 45 min) Laparoscopic surgery (> 45 min) Malignancy Confined to bed (> 72 hours) Immobilizing plaster cast Central venous access Age >= 75 History of VTE Family history of VTE Factor V Leiden Prothrombin [id number] Lupus anticoagulant Anticardiolipin antibodies Elevated serum homocysteine Heparin-induced thrombocytopenia Other congenital or acquired thrombophilia Stroke (< 1 month) Elective arthroplasty Hip, pelvis, or leg fracture Acute spinal cord injury (< 1 month) Prophylaxis Regimen Total Risk Factor Score Risk Level Prophylaxis Regimen 0-1 Low Early ambulation 2 Moderate Order ONE of the following: *Sequential Compression Device (SCD) *Heparin 5000 units SQ BID 3-4 Higher Order ONE of the following medications: *Heparin 5000 units SQ TID *Enoxaparin/Lovenox 40 mg SQ daily (WT < 150 kg, CrCl > 30 mL/min) *Enoxaparin/Lovenox 30 mg SQ daily (WT < 150 kg, CrCl > 10-29 mL/min) *Enoxaparin/Lovenox 30 mg SQ BID (WT < 150 kg, CrCl > 30 mL/min) AND/OR *Sequential Compression Device (SCD) 5 or more Highest Order ONE of the following medications: *Heparin 5000 units SQ TID (Preferred with Epidurals) *Enoxaparin/Lovenox 40 mg SQ daily (WT < 150 kg, CrCl > 30 mL/min) *Enoxaparin/Lovenox 30 mg SQ daily (WT < 150 kg, CrCl > 10-29 mL/min) *Enoxaparin/Lovenox 30 mg SQ BID (WT < 150 kg, CrCl > 30 mL/min) AND *Sequential Compression Device (SCD) Assessment and Plan Assessment and Plan 1. Partial Small bowel Obstruction CT shows low-grade or partial small bowel obstruction with mildly distended small bowel loops in the proximal and mid small bowel with multiple air-fluid levels. Small amount of free fluid in the pelvis. No free air. stable in his bedroom will continue 24 hours of bowel rest and follow he has his own physicians at [place] [facility] will try to follow with out any surgical intervention not necessary at this time, but will continue to monitor his Electrolytes and replace as needed 2. Intractable Nausea and vomit improving at this time 3. OA by history 4. Anxiety disorder/PTSD to continue Home medicines 5. Prostate cancer history status post Radiation therapy and Colon lesions from there. 6. Hyperlipidemia will continue home medicines 7. COPD to continue bronchodilator, Mucolytic and incentive spirometry 8. Urolithiasis by history 9. Sleep apnea on no CPAP. DVT prophylaxis with Heparin Code Status Full Code. Discussed Condition With Nelly Fernando Guillermo MD Dec 10, 2016 1:27 pm
[2016-12-10] MEDS ORDERED: LACTULOSE SYRUP 20 GM/30 ML CUP PO PRN (13:30)
[2016-12-10] MEDS ORDERED: ACETAMINOPHEN 325 MG TAB PO PRN (13:30)
[2016-12-10] MEDS ORDERED: NALOXONE HCL 0.4 MG/ML AMP IV PUSH PRN (13:30)
[2016-12-10] MEDS ORDERED: SODIUM CHLORIDE 0.9% FLUSH 10 ML FLUSH IV FLUSH PRN (13:30)
[2016-12-10] MEDS ORDERED: SENNOSIDES 8.6 MG TAB PO PRN (13:30)
[2016-12-10] MEDS ORDERED: MAGNESIUM HYDROXIDE SUSP 30 ML CUP PO PRN (13:30)
[2016-12-10] MEDS ORDERED: ONDANSETRON HCL 4 MG/2 ML VIAL IVP PRN (13:30)
[2016-12-10] MEDS ORDERED: MORPHINE SULFATE 4 MG/ML INJ IV PUSH PRN (13:30)
[2016-12-10] MEDS ORDERED: BISACODYL 10 MG SUPP RECTAL PRN (13:30)
[2016-12-10] MEDS: SODIUM CHLOR 0.9% 1000 ML INJ 1,000 ML IV SCH (15:19)
[2016-12-10] MEDS ORDERED: BUPR300T PO (15:30)
[2016-12-10] MEDS: HYPROMELLOSE 0.3 % OPTH GEL 10 GM (0.34 FL OZ) TUBE RIGHT EYE SCH ×2 (18:00→22:15)
[2016-12-10] MEDS: BACLOFEN 10 MG TAB PO SCH (18:49)
[2016-12-10] MEDS: SODIUM CHLORIDE 0.9% FLUSH 10 ML FLUSH IV FLUSH SCH (21:00)
[2016-12-10] MEDS ORDERED: ATORVASTATIN 40 MG TAB PO SCH (21:00)
[2016-12-10] MEDS ORDERED: traZODone HCL 100 MG TAB PO SCH (21:00)
[2016-12-10] MEDS: DOCUSATE SODIUM 50 MG/SENNA 8.6 MG TAB PO SCH (22:14)
[2016-12-10] MEDS: HEPARIN SODIUM - SQ 10,000 UNITS/ML VIAL SQ SCH (22:14)
[2016-12-11] VITALS (8 sets, daily range): BP systolic 114–121; BP diastolic 58–61; PULSE 47–57; RESP 18; TEMP 97.5–97.9; O2SAT 92–96
[2016-12-11] MEDS: SODIUM CHLOR 0.9% 1000 ML INJ 1,000 ML IV SCH ×2 (01:48→11:34)
[2016-12-11] MEDS: clonazePAM 0.5 MG TAB PO SCH ×2 (01:49→09:59)
[2016-12-11 05:10] LABS: AUTOMATED NEUTROPHIL # 3.3 TH/MM3 (1.8-7.7); BASOPHIL % 0.3 % (0.0-2.0); EOSINOPHIL # 0.2 TH/MM3 (0-0.4); EOSINOPHIL % 3.8 % (0.0-4.0); HEMATOCRIT 36.5 % (39.0-51.0); HEMO FLAGS DIFF FINAL; LYMPH % 31.2 % (9.0-44.0); LYMPHOCYTE # 1.8 TH/MM3 (1.0-4.8); MEAN CELL VOLUME 89.2 FL (80.0-100.0); MEAN CORPUSCULAR HEMOGLOBIN 29.1 PG (27.0-34.0); MEAN CORPUSCULAR HGB CONC 32.6 % (32.0-36.0); MONO % 8.7 % (0.0-8.0); PLATELET COUNT 246 TH/MM3 (150-450); RED BLOOD COUNT 4.09 MIL/MM3 (4.50-5.90); RED CELL DISTRIBUTION WIDTH 13.9 % (11.6-17.2); WHITE BLOOD COUNT 5.9 TH/MM3 (4.0-11.0)
[2016-12-11 05:22] LABS: ALKALINE PHOSPHATASE 73 U/L (45-117); ALT (GPT) 52 U/L (12-78); ANION GAP 5 MEQ/L (5-15); AST (GOT) 28 U/L (15-37); BICARBONATE 30.3 MEQ/L (21.0-32.0); BLOOD UREA NITROGEN 12 MG/DL (7-18); CHLORIDE 106 MEQ/L (98-107); GLOMERULAR FILTRATION RATE 78 ML/MIN (>89); POTASSIUM 3.8 MEQ/L (3.5-5.1); SODIUM (NA) 141 MEQ/L (136-145); TOTAL BILIRUBIN ADULT 0.4 MG/DL (0.2-1.0)
[2016-12-11] MEDS: HEPARIN SODIUM - SQ 10,000 UNITS/ML VIAL SQ SCH ×2 (06:42→13:17)
[2016-12-11] MEDS: SODIUM CHLORIDE 0.9% FLUSH 10 ML FLUSH IV FLUSH SCH (09:00)
[2016-12-11] MEDS ORDERED: buPROPion HCL 150 MG SUSTAINED RELEASE TAB PO SCH (09:00)
[2016-12-11] MEDS: BACLOFEN 10 MG TAB PO SCH ×2 (09:59→13:17)
[2016-12-11] MEDS: DOCUSATE SODIUM 50 MG/SENNA 8.6 MG TAB PO SCH (09:59)
[2016-12-11] MEDS: HYPROMELLOSE 0.3 % OPTH GEL 10 GM (0.34 FL OZ) TUBE RIGHT EYE SCH ×2 (10:01→13:16)
--- NOTE | 2016-12-11 10:52 | HHI.PR ---
Subjective Remarks This is a pleasant 66 y/o male who was brought in to Emergency room by his , due to Intractable Abdominal pain and nausea and vomit that started last night, he has history of Prostate cancer with radiation therapy 2002, with colon lesion after Radiation therapy got paralytic Ileus, he is been Hospitalized on [facility] due to paralytic Ileus , he follows [facility], Denied any chest pain, shortness of breath, fevers, chills, malaise, weakness or urinary symptoms. Patient states the last time he had a bowel movement was 2 days ago. Patient is still nauseated at this time but has not vomited since arriving to the hospital. Seen in ER in the presence of his , he started yesterday night with Nausea, vomit and abdominal pain on epigastric area, non radiated and 8/10 in intensity. at this time improved with pain medicine. 12/11: Seen in his bedroom discussed with nurse Miss Koch, patient walking in the aisle, given Lactulose for constipation and following. probable discharge later today. Objective Vital Signs Date Time Temp Pulse Resp B/P (MAP) Pulse Ox O2 Delivery O2 Flow Rate FiO2 12/11/16 08:00 48 12/11/16 07:31 97.5 51 18 121/59 (79) 95 12/11/16 04:00 54 12/11/16 03:34 97.9 57 18 114/58 (76) 92 12/11/16 00:10 54 12/10/16 23:27 97.9 63 18 101/56 (71) 93 12/10/16 20:18 97.9 57 20 122/66 (84) 97 12/10/16 20:00 60 12/10/16 17:17 97.8 53 16 117/62 (80) 98 12/10/16 16:00 12/10/16 15:54 22 12/10/16 15:24 60 18 126/79 (95) 97 Room Air 12/10/16 12:19 63 18 128/73 (91) 99 Room Air 12/10/16 11:41 18 95 Room Air 12/10/16 11:06 18 12/10/16 10:52 98.7 75 12 125/77 (93) 97 I/O 12/10/16 12/10/16 12/10/16 12/11/1617 9/20/17 07:00 15:00 23:00 07:00 15:00 23:00 Intake Total 1000 ml Balance 1000 ml Intake IV Total 1000 ml Result Diagram: 12/11/16 0426 12/11/16 0426 Imaging Last Impressions Abdomen/Pelvis CT 12/10/16 1113 Signed Impressions: Service Date/Time: Saturday, December 10, 2016 11:45 - CONCLUSION: 1. Low grade or partial small bowel obstruction with mildly distended small bowel loops in the proximal and mid small bowel with multiple air-fluid levels. Small amount of free fluid in the pelvis. No free air. 2. Fatty liver. Subacute lower left rib fractures previously identified in August 2016. Stable left adrenal calcifications. Stable renal parapelvic cysts and tiny nonobstructing calculi. Domingo Fall MD Procedures None Other Results Laboratory Tests Test 12/10/16 11:15 12/11/16 04:26 Prothrombin Time 10.5 SEC Prothromb Time International Ratio 1.0 RATIO Activated Partial Thromboplast Time 26.1 SEC Lipase 192 U/L White Blood Count 5.9 TH/MM3 Red Blood Count 4.09 MIL/MM3 Hemoglobin 11.9 GM/DL Hematocrit 36.5 % Mean Corpuscular Volume 89.2 FL Mean Corpuscular Hemoglobin 29.1 PG Mean Corpuscular Hemoglobin Concent 32.6 % Red Cell Distribution Width 13.9 % Platelet Count 246 TH/MM3 Mean Platelet Volume 7.9 FL Neutrophils (%) (Auto) 56.0 % Lymphocytes (%) (Auto) 31.2 % Monocytes (%) (Auto) 8.7 % Eosinophils (%) (Auto) 3.8 % Basophils (%) (Auto) 0.3 % Neutrophils # (Auto) 3.3 TH/MM3 Lymphocytes # (Auto) 1.8 TH/MM3 Monocytes # (Auto) 0.5 TH/MM3 Eosinophils # (Auto) 0.2 TH/MM3 Basophils # (Auto) 0.0 TH/MM3 CBC Comment DIFF FINAL Differential Comment Blood Urea Nitrogen 12 MG/DL Creatinine 0.96 MG/DL Random Glucose 91 MG/DL Total Protein 6.2 GM/DL Albumin 3.4 GM/DL Calcium Level 8.2 MG/DL Alkaline Phosphatase 73 U/L Aspartate Amino Transf (AST/SGOT) 28 U/L Alanine Aminotransferase (ALT/SGPT) 52 U/L Total Bilirubin 0.4 MG/DL Sodium Level 141 MEQ/L Potassium Level 3.8 MEQ/L Chloride Level 106 MEQ/L Carbon Dioxide Level 30.3 MEQ/L Anion Gap 5 MEQ/L Estimat Glomerular Filtration Rate 78 ML/MIN Objective Remarks GENERAL: Well developed and no acute distress. SKIN: Focused skin assessment warm/dry. HEAD: Atraumatic. Normocephalic. EYES: Pupils equal and round. No scleral icterus. No injection or drainage. ENT: No nasal bleeding or discharge. Mucous membranes pink and moist. NECK: Trachea midline. No JVD. CARDIOVASCULAR: Regular rate and rhythm. No murmur appreciated. RESPIRATORY: No accessory muscle use. Clear to auscultation. Breath sounds equal bilaterally. GASTROINTESTINAL: Soft non tender. positive bowel sounds. MUSCULOSKELETAL: No obvious deformities. No clubbing. No cyanosis. No edema. NEUROLOGICAL: Awake and alert. No obvious cranial nerve deficits. Motor grossly within normal limits. Normal speech. PSYCHIATRIC: Appropriate mood and affect; insight and judgment normal. Medications and IVs Current Medications Medications (Trade) Dose Ordered Sig/Shikha Route Start Time Stop Time Status Last Admin (Lipitor) 40 mg HS PO 12/10/16 21:00 12/10/16 22:14 (Lioresal) 10 mg TID PO 12/10/16 18:00 12/11/16 09:59 (Wellbutrin Sr) 150 mg BID PO 12/11/16 09:00 12/11/16 09:59 (KlonoPIN) 0.5 mg BID PO 12/10/16 21:00 12/11/16 09:59 (Genteal Severe Dry Eye Relief 0.3% Opth Gel) 1 drop QID RIGHT EYE 12/10/16 18:00 12/11/16 10:01 (Desyrel) 100 mg HS PO 12/10/16 21:00 12/10/16 22:14 Sodium Chloride 1,000 ml @ 100 mls/hr Q10H IV 12/10/16 15:00 12/11/16 01:48 (NS Flush) 2 ml UNSCH PRN IV FLUSH 12/10/16 13:30 (NS Flush) 2 ml BID IV FLUSH 12/10/16 21:00 (Tylenol) 650 mg Q4H PRN PO 12/10/16 13:30 (Zofran Inj) 4 mg Q6H PRN IVP 12/10/16 13:30 (Narcan Inj) 0.4 mg UNSCH PRN IV PUSH 12/10/16 13:30 (Emma-Colace) 1 tab BID PO 12/10/16 21:00 12/11/16 09:59 (Milk Of Magnesia Liq) 30 ml Q12H PRN PO 12/10/16 13:30 (Senokot) 17.2 mg Q12H PRN PO 12/10/16 13:30 (Dulcolax Supp) 10 mg DAILY PRN RECTAL 12/10/16 13:30 (Lactulose Liq) 30 ml DAILY PRN PO 12/10/16 13:30 (Morphine Inj) 2 mg Q3H PRN IV PUSH 12/10/16 13:30 12/10/16 15:28 (Heparin Inj) 5,000 units Q8HR SQ 12/10/16 22:00 12/11/16 06:42 A/P Assessment and Plan 1. Partial Small bowel Obstruction CT shows low-grade or partial small bowel obstruction with mildly distended small bowel loops in the proximal and mid small bowel with multiple air-fluid levels. Small amount of free fluid in the pelvis. No free air. stable in his bedroom reviewed laboratory no changes, will follow during the day for probable discharge. 2. Intractable Nausea and vomit improved 3. OA by history 4. Anxiety disorder/PTSD to continue Home medicines 5. Prostate cancer history status post Radiation therapy and Colon lesions from there. 6. Hyperlipidemia will continue home medicines 7. COPD to continue bronchodilator, Mucolytic and incentive spirometry 8. Urolithiasis by history 9. Sleep apnea on no CPAP. DVT prophylaxis with Heparin Code Status Full Code. Discussed Condition With Patient and nurse Miss Koch, all questions answered to the best of my abilities Discharge Planning Expected later today Wilbur Soria MD Dec 11, 2016 10:52
--- NOTE | 2016-12-11 16:25 | HHI.DS ---
Discharge Summary Admission Date Dec 10, 2016 at 14:42 Discharge Date: Dec 11, 2016 Admitting Diagnosis (1) Bowel obstruction ICD Code: K56.60 - Unspecified intestinal obstruction Status: Acute Procedures None Brief History - From Admission This is a pleasant 66 y/o male who was brought in to Emergency room by his , due to Intractable Abdominal pain and nausea and vomit that started last night, he has history of Prostate cancer with radiation therapy 2002, with colon lesion after Radiation therapy got paralytic Ileus, he is been Hospitalized on [facility] due to paralytic Ileus , he [facility], Denied any chest pain, shortness of breath, fevers, chills, malaise, weakness or urinary symptoms. Patient states the last time he had a bowel movement was 2 days ago. Patient is still nauseated at this time but has not vomited since arriving to the hospital. Seen in ER in the presence of his , he started yesterday night with Nausea, vomit and abdominal pain on epigastric area, non radiated and 8/10 in intensity. at this time improved with pain medicine. CBC/BMP: 12/11/16 0426 12/11/16 0426 Significant Findings Laboratory Tests Test 12/10/16 11:15 12/11/16 04:26 Neutrophils (%) (Auto) 83.9 % (16.0-70.0) Lymphocytes # (Auto) 0.9 TH/MM3 (1.0-4.8) Random Glucose 137 MG/DL (74-106) Estimat Glomerular Filtration Rate 74 ML/MIN (>89) 78 ML/MIN (>89) Red Blood Count 4.09 MIL/MM3 (4.50-5.90) Hemoglobin 11.9 GM/DL (13.0-17.0) Hematocrit 36.5 % (39.0-51.0) Monocytes (%) (Auto) 8.7 % (0.0-8.0) Total Protein 6.2 GM/DL (6.4-8.2) Calcium Level 8.2 MG/DL (8.5-10.1) Imaging Last Impressions Abdomen/Pelvis CT 12/10/16 1113 Signed Impressions: Service Date/Time: Saturday, December 10, 2016 11:45 - CONCLUSION: 1. Low grade or partial small bowel obstruction with mildly distended small bowel loops in the proximal and mid small bowel with multiple air-fluid levels. Small amount of free fluid in the pelvis. No free air. 2. Fatty liver. Subacute lower left rib fractures previously identified in August 2016. Stable left adrenal calcifications. Stable renal parapelvic cysts and tiny nonobstructing calculi. Domingo Fall MD PE at Discharge GENERAL: Well developed and no acute distress. SKIN: Focused skin assessment warm/dry. HEAD: Atraumatic. Normocephalic. EYES: Pupils equal and round. No scleral icterus. No injection or drainage. ENT: No nasal bleeding or discharge. Mucous membranes pink and moist. NECK: Trachea midline. No JVD. CARDIOVASCULAR: Regular rate and rhythm. No murmur appreciated. RESPIRATORY: No accessory muscle use. Clear to auscultation. Breath sounds equal bilaterally. GASTROINTESTINAL: Soft non tender. positive bowel sounds. MUSCULOSKELETAL: No obvious deformities. No clubbing. No cyanosis. No edema. NEUROLOGICAL: Awake and alert. No obvious cranial nerve deficits. Motor grossly within normal limits. Normal speech. PSYCHIATRIC: Appropriate mood and affect; insight and judgment normal. Hospital Course This is a pleasant 66 y/o male who was brought in to Emergency room by his , due to Intractable Abdominal pain and nausea and vomit that started last night, he has history of Prostate cancer with radiation therapy 2002, with colon lesion after Radiation therapy got paralytic Ileus, he is been Hospitalized on [facility] due to paralytic Ileus , he [facility], Denied any chest pain, shortness of breath, fevers, chills, malaise, weakness or urinary symptoms. Patient states the last time he had a bowel movement was 2 days ago. Patient is still nauseated at this time but has not vomited since arriving to the hospital. Seen in ER in the presence of his , he started yesterday night with Nausea, vomit and abdominal pain on epigastric area, non radiated and 8/10 in intensity. at this time improved with pain medicine. 12/11: Seen in his bedroom discussed with nurse Miss Koch, patient walking in the aisle, given Lactulose for constipation and following. probable discharge later today. Assessment and Plan 1. Partial Small bowel Obstruction CT shows low-grade or partial small bowel obstruction with mildly distended small bowel loops in the proximal and mid small bowel with multiple air-fluid levels. Small amount of free fluid in the pelvis. No free air. stable in his bedroom reviewed laboratory no changes, gave bowel movement and no complaint , okay to discharge after he eat something 2. Intractable Nausea and vomit improved 3. OA by history 4. Anxiety disorder/PTSD to continue Home medicines 5. Prostate cancer history status post Radiation therapy and Colon lesions from there. 6. Hyperlipidemia will continue home medicines 7. COPD to continue bronchodilator, Mucolytic and incentive spirometry 8. Urolithiasis by history 9. Sleep apnea on no CPAP. DVT prophylaxis with Heparin Code Status Full Code. Discussed Condition With Patient and nurse Miss Koch, all questions answered to the best of my abilities Discharge Planning Discharge Home. Pt Condition on Discharge: Good Discharge Disposition: Discharge Home Discharge Time: <= 30 minutes Discharge Instructions DIET: Follow Instructions for: As Tolerated, No Restrictions Activities you can perform: Regular-No Restrictions Wilbur Soria MD Dec 11, 2016 16:25
--- NOTE | 2016-12-11 21:03 | EKG ---
Date Performed: 12/10/2016 Time Performed: 12:30:42 PTAGE: 66 years EKG: SINUS BRADYCARDIA INFERIOR MYOCARDIAL INFARCTION ABNORMAL ECG PREVIOUS TRACING : 09/20/2016 08.57 Compared to prior tracing no significant change DOCTOR: Donta Balbuena Interpretating Date/Time 12/11/2016 20:53:57
== END 2016-12-11 18:27 | disposition home or self-care (01) | DRG 390 ==
LOC: NEPC 10:48 → NEDA 13:23 → OBSVTOIN 14:42 → NEPGCP 15:52
PROVIDERS: ADMIT Internal Medicine; ATTEND Internal Medicine
DX: K56.60 Unspecified intestinal obstruction (principal); F03.90 Unspecified dementia, unspecified severity, without behavioral disturbance, psychotic disturbance, mood disturbance, and anxiety; J44.9 Chronic obstructive pulmonary disease, unspecified; F32.9 Major depressive disorder, single episode, unspecified; G47.30 Sleep apnea, unspecified; K21.9 Gastro-esophageal reflux disease without esophagitis; F43.10 Post-traumatic stress disorder, unspecified; F41.9 Anxiety disorder, unspecified; M19.90 Unspecified osteoarthritis, unspecified site; E78.5 Hyperlipidemia, unspecified; F12.10 Cannabis abuse, uncomplicated; Z85.46 Personal history of malignant neoplasm of prostate; Z92.3 Personal history of irradiation
CPT/HCPCS: 74177; 80053; 83690; 85025; 85610; 85730; 93005; 96361; 96374; 96375; J1644; J2270; J2405; J7030; Q9967